=== PATIENT | female | born 1990 | race Caucasian/White ===

== ENCOUNTER 2025-01-04 06:53 | Emergency (ER) | payer OTHER, BC ==
[2025-01-04 07:13] VITALS: BP 139/97; PULSE 79
[2025-01-04] MEDS: Diphtheria,Pertussis(Acell),Tetanus Vaccine 0.5 ML Syringe IM ONE (07:23)
[2025-01-04] MEDS: Bacitracin Oint 1 GM U/D Packet TOP ONE (07:42)
== END 2025-01-04 07:48 | disposition home or self-care (01) ==
LOC: MW.ED 06:53
DX: S61.111A Laceration without foreign body of right thumb with damage to nail, initial encounter (principal); Z23 Encounter for immunization; Z91.09 Other allergy status, other than to drugs and biological substances; Z88.8 Allergy status to other drugs, medicaments and biological substances; Z79.899 Other long term (current) drug therapy; W26.0XXA Contact with knife, initial encounter
CPT/HCPCS: 12002; 73140; 90471; 90715; 99283; J2003